=== PATIENT | male | born 1940 | race Caucasian/White ===

== ENCOUNTER 2016-03-27 15:14 | Inpatient (IN) | payer MEDICARE ==
[~2016-03-27] VITALS: Ht 198.1 cm; Wt 116.4 kg
[2016-03-28] MEDS ORDERED: OMEP20TA PO (11:47)
[2016-04-02] VITALS (7 sets, daily range): BP systolic 111–165; BP diastolic 63–82; PULSE 60–93; RESP 15–21; TEMP 97.7–98.5; O2SAT 95–97
[2016-04-02] MEDS ORDERED: THROMBIN (TOPICAL) 5,000 UNIT VIAL ONE (06:35)
[2016-04-02] MEDS ORDERED: GELFOAM SIZE 100 ONE (06:35)
[2016-04-02] MEDS ORDERED: HEPARIN SODIUM - SQ 10,000 UNITS/ML VIAL ONE (06:36)
[2016-04-02] MEDS ORDERED: HEPARIN SODIUM - IV 10,000 UNITS/10 ML VIAL ONE (06:36)
[2016-04-02] MEDS ORDERED: ceFAZolin 2 GM PREMIX 50 ML ONE (06:36)
[2016-04-02] MEDS ORDERED: PROTAMINE SULFATE 50 MG/5 ML VIAL ONE (06:36)
[2016-04-02] MEDS ORDERED: BUPIVACAINE/EPINEPHRINE 0.5% PF 30 ML VIAL ONE (06:42)
[2016-04-02] MEDS ORDERED: BUPIVACAINE/EPINEPHRINE 0.5% 50 ML VIAL ONE (06:44)
[2016-04-02] MEDS ORDERED: INSULIN HUMAN REGULAR 1,000 UNITS/10 ML VIAL SQ PRN (06:45)
[2016-04-02] MEDS ORDERED: METOPROLOL TARTRATE 25 MG TAB PO PRN (06:45)
--- NOTE | 2016-04-02 06:55 | PD.VS.PN ---
Pre-operative Note Pre-operative diagnosis: AAA Planned procedure: EVAR Labs: Hct 44 cr <1.0 Blood: T&S Imaging: CT reviewed CXR : no acute process Orders: ANILA PACHECO Post-operative destination: PACU Operative site marked: No (bilateral groin access) Consent: Informed consent has been obtained from Asad Dang. I have explained the procedure in detail and discussed the risks, benefits, and potential complications. All questions have been answered. Patient contact information: girlfriend, phone number on chart Pietro Deal MD Apr 02, 2016 6:55 am
[2016-04-02] MEDS ORDERED: MIDAZOLAM HCL 2 MG/2 ML VIAL ONE (07:08)
[2016-04-02] MEDS ORDERED: DEXAMETHASONE SOD PHOS 4 MG/ML VIAL ONE (07:08)
[2016-04-02] MEDS ORDERED: LACTATED RINGER'S 1000 ML IV SCH (07:30)
[2016-04-02] MEDS ORDERED: SODIUM CHLORID 0.9% 500 ML IV SCH (07:30)
[2016-04-02] MEDS ORDERED: IOHEXOL 350 MG/ML 100 ML BTL (for RAD DIAG) OTHER ONE (08:21)
[2016-04-02] MEDS ORDERED: fentaNYL CITRATE 250 MCG/5 ML AMP ONE (08:48)
[2016-04-02] MEDS ORDERED: ePHEDrine/NS 50 MG/5 ML SYR IV ONE (09:03)
[2016-04-02] MEDS ORDERED: LACTATED RINGER'S 1000 ML INJ 1,000 ML IV ONE (09:03)
[2016-04-02] MEDS ORDERED: PROPOFOL 200 MG/20 ML AMP IV ONE (09:03)
[2016-04-02] MEDS ORDERED: ONDANSETRON HCL 4 MG/2 ML VIAL IV PUSH ONE (09:03)
[2016-04-02] MEDS ORDERED: NEOSTIGMINE 3 MG/3 ML SYR IV ONE (09:03)
[2016-04-02] MEDS ORDERED: NORMOSOL R INJ 2,000 ML IV ONE (09:04)
[2016-04-02] MEDS ORDERED: SODIUM CHLORID 0.9% 500 ML INJ 500 ML IV ONE (09:04)
[2016-04-02] MEDS ORDERED: IOHEXOL 350 MG/ML 100 ML BTL (for Cath Lab) OTHER ONE (09:19)
--- NOTE | 2016-04-02 10:13 | HHI.PR ---
Immediate Post Op Note Procedure Date: Apr 02, 2016 Pre Op Diagnosis: AAA Post Op Diagnosis: AAA Surgeon: Pietro Deal Senior Asp Net Developer(s): Zeus Pride Procedure: EVAR B SECURITY SYSTEMS INSTALLER Perclose Findings: successful repair + signals B LE after Perclose Complications: none apparent Specimen(s) removed: none Estimated blood loss: 100mL Anesthesia: General Drains: None Fluids: 2000 mL x'oid; 400 mL UOP Patient to: PACU Patient Condition: Good Implant/Devices: SEE IMPLANT LOG (if applicable) Date/Time of Procedure: SEE SURGICAL CARE RECORD Pietro Deal MD Apr 02, 2016 10:13
[2016-04-02] MEDS ORDERED: oxyCODONE/ACETAMINOPHEN 10 MG/325 MG TAB PO PRN (10:15)
[2016-04-02] MEDS ORDERED: GLUCAGON 1 MG/ML VIAL OTHER PRN (10:15)
[2016-04-02] MEDS ORDERED: DEXTROSE 50% IN WATER 50 ML VIAL(D50) IV PUSH PRN (10:15)
[2016-04-02] MEDS ORDERED: Post-op Orders (for Pharmacy) MISC OTHER ONE (10:15)
[2016-04-02] MEDS ORDERED: oxyCODONE/ACETAMINOPHEN 5 MG/325 MG TAB PO PRN (10:15)
[2016-04-02] MEDS ORDERED: ACETAMINOPHEN 325 MG TAB PO PRN (10:15)
[2016-04-02] MEDS: SODIUM CHLOR 0.9% 1000 ML INJ 1,000 ML IV SCH (10:28)
[2016-04-02] MEDS ORDERED: DO NOT ADM ANY ANTICOAGULANT DRUGS XX PRN (10:30)
[2016-04-02] MEDS ORDERED: *ONDANSETRON 4 MG VIAL PERIprocedural Use ONLY ONE (11:02)
[2016-04-02] MEDS: INSULIN NovoLIN REGULAR SUPPLEMENTAL SCALE SQ SCH ×3 (12:00→23:21)
[2016-04-02] MEDS ORDERED: PANTOPRAZOLE SOD 40 MG DELAYED RELEASE TAB PO SCH (21:00)
[2016-04-03 03:00] VITALS: BP 127/66; PULSE 61; PULSE 64; RESP 22; TEMP 97.7; O2SAT 95
[2016-04-03] MEDS: SODIUM CHLOR 0.9% 1000 ML INJ 1,000 ML IV SCH (05:34)
[2016-04-03] MEDS: INSULIN NovoLIN REGULAR SUPPLEMENTAL SCALE SQ SCH (06:00)
[2016-04-03 06:37] LABS: ALT (GPT) 16 U/L (12-78); ANION GAP 6 MEQ/L (5-15); AST (GOT) 13 U/L (15-37); BICARBONATE 26.9 MEQ/L (21.0-32.0); BLOOD UREA NITROGEN 18 MG/DL (7-18); CHLORIDE 107 MEQ/L (98-107); GLOMERULAR FILTRATION RATE 81 ML/MIN (>89); SODIUM (NA) 140 MEQ/L (136-145)
[2016-04-03 06:40] LABS: ALKALINE PHOSPHATASE 70 U/L (45-117); TOTAL BILIRUBIN ADULT 0.4 MG/DL (0.2-1.0)
[2016-04-03 07:00] VITALS: PULSE 60
[2016-04-03 07:52] VITALS: BP 142/77; PULSE 59; RESP 18; TEMP 97.4; O2SAT 97
--- NOTE | 2016-04-03 08:00 | PD.VS.PN ---
Subjective POD #: 1 Procedure(s): EVAR Subjective/Hospital Course doing well, ambulating, voiding on his own Groins ok and no pain Objective Vitals/I&O Date Time Temp Pulse Resp B/P Pulse Ox O2 Delivery O2 Flow Rate FiO2 04/03/16 07:52 97.4 59 18 142/77 97 04/03/16 03:00 97.7 64 22 127/66 95 04/03/16 03:00 61 04/02/16 23:00 60 04/02/16 23:00 98.4 66 21 120/65 04/02/16 20:35 21 04/02/16 19:21 98.5 93 18 111/65 04/02/16 19:00 85 04/02/16 15:36 69 04/02/16 15:36 98.1 66 15 114/63 95 04/02/16 15:28 97 Nasal Cannula 3.00 04/02/16 12:30 98.0 65 20 137/75 96 Arterial Line 04/02/16 12:30 66 04/02/16 12:00 97.2 58 14 145/77 97 Nasal Cannula 2 04/02/16 11:05 Nasal Cannula 2 04/02/16 11:00 64 16 147/78 98 Nasal Cannula 3 04/02/16 10:45 57 16 136/71 97 Nasal Cannula 3 04/02/16 10:30 60 16 136/71 97 Nasal Cannula 3 155/63 04/02/16 10:15 70 16 147/73 98 Nasal Cannula 3 151/65 04/02/16 10:08 97.4 70 16 142/78 97 Nasal Cannula 3 04/03/16 04/03/16 04/03/16 07:00 15:00 23:00 Intake Total 1500 ml Output Total 1025 ml Balance 475 ml Exam: groins soft, minimal ecchymoses L>R Feet warm Laboratory Laboratory Tests Test 04/02/16 04/03/16 13:05 05:17 Blood Type O POSITIVE Sodium Level 140 Potassium Level 4.0 Chloride Level 107 Carbon Dioxide Level 26.9 Anion Gap 6 Blood Urea Nitrogen 18 Creatinine 0.91 Estimat Glomerular Filtration 81 Rate Random Glucose 122 Calcium Level 8.3 Total Bilirubin 0.4 Aspartate Amino Transf 13 (AST/SGOT) Alanine Aminotransferase 16 (ALT/SGPT) Alkaline Phosphatase 70 Total Protein 5.7 Albumin 3.2 Assessment and Plan Plan Ready for d/c today RTC 1m with post-op EVAR CTA Pietro Deal MD Apr 03, 2016 08:00
[2016-04-03] MEDS ORDERED: ASPIRIN EC 325 MG TABEC PO SCH (09:00)
[2016-04-03] MEDS ORDERED: Aspirin Ec PO (09:23)
--- NOTE | 2016-04-05 12:05 | MP ---
cc: KAREN DEAL MD DATE OF SURGERY 04/02/2016 PREOPERATIVE DIAGNOSIS Abdominal aortic aneurysm. POSTOPERATIVE DIAGNOSIS Abdominal aortic aneurysm. PROCEDURE 1. Endovascular exclusion of abdominal aortic aneurysm with a bifurcated device with two docking lens. 2. Bilateral common femoral artery Perclose. ATTENDING SURGEON Karen Deal MD ANESTHESIA General. INDICATION Mr. Dang is a 75-year-old gentleman with a 5.5 cm infrarenal intact abdominal aortic aneurysm. Anatomically he is a candidate for endovascular repair and he was taken to the operating room for this procedure. DESCRIPTION OF THE PROCEDURE Informed consent was obtained from the patient. He was taken to the operating room and placed supine on the operating table. An appropriate timeout was taken to ensure the patient's identity, operative site and planned procedure. 2 grams of Ancef initiated prior to skin incision and will be discontinued after a single prep dose. Everyone in the room agreed with time out and proceeded. He was prepped from his nipple to his knees. A 21 gauge micropuncture needles were used to access the bilateral common femoral arteries. This was exchanged using Seldinger technique for micropuncture sheaths through which angiography was performed to confirm intraarterial access in the common femoral location. Two 5 Citizen [place] sheaths after the micropuncture sheath were placed 0.035 Storq wire was inserted and micropuncture was changed for a 5 [place] sheath. Two Perclose Proglide sutures were inserted and tagged. These were not tied but will be used later. The Storq wire was advanced to the aorta and a short 8 [place] sheath was placed on the left and a long 8 [place] sheath was placed on the right. The patient was systemically heparinized throughout the remainder of the case. ACT was kept greater 250. Over the right hand a straight marker flush catheter was placed and over the left hand a Storq wire a catheter was used to exchange for a Lunderquist wire. The 8 Citizen [place] sheath on the left was removed. Jessie dilators were used to dilate the skin and subcutaneous tissue as well as the arteriotomy and the main device which was a 26 x 111 was inserted oriented appropriately. Interval angiography was performed to locate the renal arteries and the main device was deployed down to the contralateral gate. The renal arteries were then confirmed and the top cap was deployed. With the main body parked in position, a roadrunner wire was placed through the flush catheter on the patient's right and this was exchanged for a Cobra catheter and using the Cobra and roadrunner we were able to navigate into the contralateral gate and this was confirmed with angiography. A Lunderquist wire was then placed. The Cobra catheter was removed and a marker flush straight catheter was then inserted. An angiogram confirmed the location of the right hypogastric artery in the contralateral limb which was a Zenith 20 x 56 was inserted and deployed so the distal aspect of the limb was immediately proximal to the hypogastric artery. After deploying the contralateral limb, the introducer of the sheath was removed. The remainder of the main body was deployed and the top cath was recaptured. The marker catheter was placed up the left hand side and an angiogram confirmed the location of the left hypogastric artery and the ipsilateral limb which was a 1656 was deployed down to the contralateral gate. A coated balloon was used to balloon the proximal and distal ends as well as the junctions and the completion angiogram was obtained that showed the type II endoleak but no I or III endoleak. Wire, catheter and sheath removed. Perclose was tied down. Hemostasis was achieved in the groin through a Doppler signal in the feet and heparin reversed with protamine. There were no complications. I was present and scrubbed for the entire procedure. MD ISABEL Seals/KK /10:45 AM /11:37 AM TRAY
== END 2016-04-03 10:20 | disposition home or self-care (01) | DRG 269 ==
LOC: HSDI 04-02 05:54 → EDUNIT# 04-02 07:30 → HCVR 04-02 14:20
PROVIDERS: ADMIT Surgery; ATTEND Surgery
PROC: 04V03EZ Restriction of Abdominal Aorta with Branched or Fenestrated Intraluminal Device, One or Two Arteries, Percutaneous Approach (ICD-10-PCS; principal; 2016-04-02 07:30)
DX: I71.4 Abdominal aortic aneurysm, without rupture (principal); I27.2 Other secondary pulmonary hypertension; E78.5 Hyperlipidemia, unspecified; K21.9 Gastro-esophageal reflux disease without esophagitis; I08.3 Combined rheumatic disorders of mitral, aortic and tricuspid valves; Z88.2 Allergy status to sulfonamides
CPT/HCPCS: 75630; 80053; 82948; 86850; 86900; 86901; 94150; C1725; C1769; C1874; J0690; J1100; J1644; J2250; J2405; J2710; J2720; J3010; J7030; J7040; J7120; Q9967

== ENCOUNTER → 2016-03-28 | Outpatient (CLI) | payer MEDICARE ==
[~2016-03-28] MED LIST: Aspirin Ec PO; OMEP20TA PO
--- NOTE | 2016-03-28 12:57 | RADRPT ---
EXAM DATE/TIME: 03/28/2016 12:32 [facility] COMPARISON: No previous studies available for comparison. INDICATIONS : Evaluate for pneumonia,pneumothorax and communicable diseases. Pre-op AAA surgery MEDICAL HISTORY : None. SURGICAL HISTORY : None. ENCOUNTER: Initial ACUITY: 1 day PAIN SCORE: 0/10 LOCATION: chest FINDINGS: PA and lateral views of the chest demonstrate the lungs to be symmetrically aerated without evidence of mass, infiltrate or effusion. The heart size is normal. There is moderate tortuosity of the thora cic aorta. Osseous structures are intact. CONCLUSION: No acute disease. Eliana Torres MD on March 28, 2016 at 12:55 Board Certified Radiologist. This report was verified electronically.
[2016-03-28 13:16] LABS: AUTOMATED NEUTROPHIL # 3.1 TH/MM3 (1.8-7.7); BASOPHIL % 0.3 % (0.0-2.0); EOSINOPHIL # 0.1 TH/MM3 (0-0.4); EOSINOPHIL % 1.8 % (0.0-4.0); HEMATOCRIT 44.3 % (39.0-51.0); HEMO FLAGS DIFF FINAL; LYMPH % 20.6 % (9.0-44.0); MEAN CELL VOLUME 90.5 FL (80.0-100.0); MEAN CORPUSCULAR HEMOGLOBIN 30.5 PG (27.0-34.0); MEAN CORPUSCULAR HGB CONC 33.7 % (32.0-36.0); MONO % 12.8 % (0.0-8.0); NEUT % 64.5 % (16.0-70.0); PLATELET COUNT 137 TH/MM3 (150-450); RED CELL DISTRIBUTION WIDTH 13.8 % (11.6-17.2); WHITE BLOOD COUNT 4.7 TH/MM3 (4.0-11.0)
[2016-03-28 13:21] LABS: BLOOD, URINE NEG (NEG); COMMENT (UR) CULT NOT INDICATED; CULTURE IF INDICATED CULT NOT INDICATED; GLUCOSE,URINE NEG (NEG); KETONE, URINE NEG (NEG); MUCUS URINE FEW /lpf (OCC); NITRITE,URINE NEG (NEG); PH, URINE 5.5 (5.0-8.5); SQUAMOUS EPITHELIAL CELL URINE <1 /hpf (0-5); URINE COLOR YELLOW (YELLW/STRAW)
[2016-03-28 13:27] LABS: PROTHROMBIN TIME - PATIENT 10.5 SEC (9.8-11.6)
[2016-03-28 13:44] LABS: BICARBONATE 29.9 MEQ/L (21.0-32.0); POTASSIUM 4.4 MEQ/L (3.5-5.1)
--- NOTE | 2016-03-29 10:24 | EKG ---
Date Performed: 03/28/2016 Time Performed: 11:23:48 PTAGE: 75 years EKG: SINUS BRADYCARDIA WITH FIRST DEGREE AV BLOCK MARKED LEFT AXIS DEVIATION LEFT BUNDLE BRANCH BLOCK ABNORMAL ECG NO PREVIOUS TRACING DOCTOR: Nain Prasad Interpretating Date/Time 03/29/2016 10:23:23
== END ==
LOC: CPRE 10:50
PROVIDERS: ATTEND Surgery
DX: Z01.812 Encounter for preprocedural laboratory examination (principal); Z01.811 Encounter for preprocedural respiratory examination; Z01.810 Encounter for preprocedural cardiovascular examination; I71.4 Abdominal aortic aneurysm, without rupture; I44.0 Atrioventricular block, first degree; I44.7 Left bundle-branch block, unspecified; R00.1 Bradycardia, unspecified; R94.31 Abnormal electrocardiogram [ECG] [EKG]
CPT/HCPCS: 36415; 71020; 80048; 81001; 85025; 85610; 93005

== ENCOUNTER 2017-05-20 11:28 | Inpatient (IN) | payer MEDICARE ==
[~2017-05-20] VITALS: Ht 198.1 cm; Wt 110.4 kg
[~2017-05-20 11:28] MED LIST changes: -Aspirin Ec PO; -OMEP20TA PO; +OMEP20TA93 PO
[2017-05-20] MEDS ORDERED: ceFAZolin INJ 1,000 MG VIAL IV ONE (12:00)
[2017-05-20] MEDS ORDERED: GLYCOPYRROLATE 1 MG/5 ML SYRINGE IV PUSH ONE (12:00)
[2017-05-20] MEDS ORDERED: ESMOLOL HCL 100 MG/10 ML VIAL IV ONE (12:00)
[2017-05-20] MEDS ORDERED: ePHEDrine/NS 25 MG/5 ML SYRINGE IV ONE (12:00)
[2017-05-20] MEDS ORDERED: ONDANSETRON HCL 4 MG/2 ML VIAL IV ONE (12:00)
[2017-05-20] MEDS ORDERED: LIDOCAINE HCL 1% PF 5 ML SYRINGE OTHER ONE (12:00)
[2017-05-20] MEDS ORDERED: ROCURONIUM INJ 50 MG/5 ML SYRINGE IV PUSH ONE (12:00)
[2017-05-20] MEDS ORDERED: PROPOFOL 200 MG/20 ML AMP IV ONE (12:00)
[2017-05-20] MEDS ORDERED: NEOSTIGMINE 5 MG/5 ML SYRINGE IV PUSH ONE (12:00)
[2017-05-20] MEDS ORDERED: METOPROLOL TARTRATE 25 MG TAB PO PRN (12:15)
[2017-05-20] MEDS ORDERED: LACTATED RINGER'S 1000 ML IV PRN (12:15)
[2017-05-20] MEDS ORDERED: POVIDONE IODINE 5% (ANTISEPSIS KIT) 4 APPLICATIONS EACH NARE PRN (12:15)
[2017-05-20] MEDS ORDERED: CHLORHEXIDINE GLUCONATE 2 % 1 PACK (2 CLOTHS) TOPICAL PRN (12:15)
[2017-05-20] MEDS ORDERED: SODIUM CHLORID 0.9% 500 ML IV PRN (12:15)
--- NOTE | 2017-05-20 12:36 | RADRPT ---
EXAM DATE/TIME: 05/20/2017 12:16 [facility] COMPARISON: No previous studies available for comparison. INDICATIONS : Evaluate for pneumonia, pneumothorax or communicable disease. Preop chest for revision of abdominal aortic aneurysm repair MEDICAL HISTORY : Aneurysm, abdominal. SURGICAL HISTORY : Abdominal aortic aneurysm repair. ENCOUNTER: Initial ACUITY: 1 day PAIN SCORE: 0/10 LOCATION: Bilateral chest FINDINGS: A single view of the chest demonstrates the lungs to be symmetrically aerated without evidence of mas s, infiltrate or effusion. The cardiomediastinal contours are unremarkable. Osseous structures are intact. CONCLUSION: No acute disease. Devon Haley Jr., MD on May 20, 2017 at 12:34 Board Certified Radiologist. This report was verified electronically.
[2017-05-20] MEDS ORDERED: PROTAMINE SULFATE 50 MG/5 ML VIAL ONE (12:45)
[2017-05-20] MEDS ORDERED: HEPARIN-NS/PF INJ 500 ML ONE (12:46)
[2017-05-20] MEDS ORDERED: BUPIVACAINE HCL PF 0.5% 30 ML VIAL ONE (12:46)
[2017-05-20] MEDS ORDERED: HEPARIN SODIUM - IV 10,000 UNITS/10 ML VIAL ONE (12:46)
--- NOTE | 2017-05-20 12:53 | HHI.HP ---
History of Present Illness Chief Complaint: Possible endoleak History of Present Illness 76 yo male s/p EVAR a year ago with ? type III endoleak on surveillance CT. Had abdominal pain in the fall that has largely subsided. Getting GI work-up including colonoscopy Past/Family/Social History Past Medical History AAA HTN XOL Past Surgical History EVAR Social History nonsmoker Family History NC Home Medications Reported Medications Omeprazole (Omeprazole) 20 Mg Tab, 20 MG PO DAILY, #30 TAB 0 Refills 03/28/16 Discontinued Scripts [Aspirin] 325 MG TABEC No Conflict Check, 325 MG PO DAILY for anticoagulation, # 30 TAB.EC 3 Refills Prov:Meagan Harris TEST TECHNICIAN 04/03/16 Coded Allergies: Sulfa (Sulfonamide Antibiotics) (Unverified Allergy, Severe, RASH, 05/20/17) Review of Systems Constitutional: DENIES: Fever, Chills Physical Exam Vitals/I&O Date Time Temp Pulse Resp B/P (MAP) Pulse Ox O2 Delivery O2 Flow Rate FiO2 05/20/17 12:06 97.5 73 18 136/72 (93) 98 Neuro: alert, oriented, no distress HEENT: NC/AT Neck: no JVD Heart: reg rate, no M Lungs: clear B Abdomen: soft Caprini VTE Risk Assessment Caprini VTE Risk Assessment: No/Low Risk (score <= 1) Caprini Risk Assessment Model Point Value = 1 Point Value = 2 Point Value = 3 Point Value = 5 Age 41-60 Minor surgery BMI > 25 kg/m2 Swollen legs Varicose veins or History of unexplained or recurrent spontaneous Oral contraceptives or hormone replacement Sepsis (< 1 month) Serious lung disease, including pneumonia (< 1 month) Abnormal pulmonary function Acute myocardial infarction Congestive heart failure (< 1 month) History of inflammatory bowel disease Medical patient at bed rest Age 61-74 Arthroscopic surgery Major open surgery (> 45 min) Laparoscopic surgery (> 45 min) Malignancy Confined to bed (> 72 hours) Immobilizing plaster cast Central venous access Age >= 75 History of VTE Family history of VTE Factor V Leiden Prothrombin [id number] Lupus anticoagulant Anticardiolipin antibodies Elevated serum homocysteine Heparin-induced thrombocytopenia Other congenital or acquired thrombophilia Stroke (< 1 month) Elective arthroplasty Hip, pelvis, or leg fracture Acute spinal cord injury (< 1 month) Prophylaxis Regimen Total Risk Factor Score Risk Level Prophylaxis Regimen 0-1 Low Early ambulation 2 Moderate Order ONE of the following: *Sequential Compression Device (SCD) *Heparin 5000 units SQ BID 3-4 Higher Order ONE of the following medications: *Heparin 5000 units SQ TID *Enoxaparin/Lovenox 40 mg SQ daily (WT < 150 kg, CrCl > 30 mL/min) *Enoxaparin/Lovenox 30 mg SQ daily (WT < 150 kg, CrCl > 10-29 mL/min) *Enoxaparin/Lovenox 30 mg SQ BID (WT < 150 kg, CrCl > 30 mL/min) AND/OR *Sequential Compression Device (SCD) 5 or more Highest Order ONE of the following medications: *Heparin 5000 units SQ TID (Preferred with Epidurals) *Enoxaparin/Lovenox 40 mg SQ daily (WT < 150 kg, CrCl > 30 mL/min) *Enoxaparin/Lovenox 30 mg SQ daily (WT < 150 kg, CrCl > 10-29 mL/min) *Enoxaparin/Lovenox 30 mg SQ BID (WT < 150 kg, CrCl > 30 mL/min) AND *Sequential Compression Device (SCD) Assessment and Plan Plan Angio and possible EVAR revision Discharge Planning [facility] [phone] Pietro Deal MD May 20, 2017 12:53
[2017-05-20 13:02] LABS: AUTOMATED NEUTROPHIL # 4.2 TH/MM3 (1.8-7.7); BASOPHIL % 0.3 % (0.0-2.0); EOSINOPHIL # 0.1 TH/MM3 (0-0.4); EOSINOPHIL % 1.1 % (0.0-4.0); HEMATOCRIT 39.9 % (39.0-51.0); HEMOGLOBIN 13.7 GM/DL (13.0-17.0); LYMPH % 13.1 % (9.0-44.0); LYMPHOCYTE # 0.7 TH/MM3 (1.0-4.8); MEAN CELL VOLUME 87.5 FL (80.0-100.0); MEAN CORPUSCULAR HGB CONC 34.3 % (32.0-36.0); MEAN PLATELET VOLUME 8.2 FL (7.0-11.0); MONO % 11.5 % (0.0-8.0); MONOCYTE # 0.7 TH/MM3 (0-0.9); PLATELET COUNT 184 TH/MM3 (150-450); RED BLOOD COUNT 4.56 MIL/MM3 (4.50-5.90); RED CELL DISTRIBUTION WIDTH 14.8 % (11.6-17.2); WHITE BLOOD COUNT 5.7 TH/MM3 (4.0-11.0)
[2017-05-20 13:09] LABS: PROTHROMBIN TIME - PATIENT 10.4 SEC (9.8-11.6)
--- NOTE | 2017-05-20 14:11 | HHI.PR ---
cc: Pietro Deal MD Immediate Post Op Note Procedure Date: May 20, 2017 Pre Op Diagnosis: Endoleak after EVAR Post Op Diagnosis: Type II endoleak after EVAR Surgeon: Pietro Deal Manager Lpn(s): none Procedure: Aortogram Findings: type II endoleak, no type I or III endoleak Complications: none Specimen(s) removed: none Estimated blood loss: 10mL Anesthesia: General Patient to: PACU Patient Condition: Good Implant/Devices: SEE IMPLANT LOG (if applicable) Date/Time of Procedure: SEE SURGICAL CARE RECORD Pietro Deal MD May 20, 2017 14:11
[2017-05-20] MEDS ORDERED: SUGAMMADEX SODIUM 200 MG/2 ML VIAL IV PUSH ONE (14:13)
[2017-05-20] MEDS ORDERED: ceFAZolin 2 GM PREMIX 50 ML IV ONE (14:36)
[2017-05-20] MEDS ORDERED: IOHEXOL 350 MG/ML 100 ML BTL (for RAD DIAG) IVCONTRAST ONE (14:51)
[2017-05-20] MEDS ORDERED: DO NOT ADM ANY ANTICOAGULANT DRUGS PRN (15:15)
[2017-05-20 16:45] VITALS: BP 141/74; PULSE 78; RESP 18; TEMP 97.8; O2SAT 96
--- NOTE | 2017-05-21 16:03 | MP ---
cc: Pietro Deal MD DATE OF OPERATION: 05/20/2017 PREOPERATIVE DIAGNOSIS: Endoleak after endovascular aortic exclusion. POSTOPERATIVE DIAGNOSIS: Type II endoleak after endovascular exclusion of abdominal aortic aneurysm. PROCEDURE PERFORMED: 1. Aortogram. 2. Right common femoral artery angioseal. ATTENDING SURGEON: Pietro Deal MD ANESTHESIA: General. INDICATIONS FOR PROCEDURE: Mr. Dang is a 76-year-old gentleman with an abdominal aortic aneurysm that was repaired by an EVAR approximately a year ago. He has suggestion of a sac growth and essential type [address] scan. He was taken to the operating room for angiographic evaluation and potential treatment. There was no prior catheter based imaging available for my review since the new CT findings. Intraoperatively it was found he had a type 2, no type 1 and no type 3 endoleak. DESCRIPTION OF PROCEDURE: Informed consent was obtained from the patient. He was taken to the operating room and placed supine on the operating table. An appropriate time out was taken to ensure the patient's identity, operative site and planned procedure, the administration of antibiotics were not necessary as this is a clean procedure without the planned implantation of any foreign object. Everyone in the room agreed with the time out and we proceeded. His bilateral groins were prepped and draped and the right common femoral artery was accessed with a 21 gauge micropuncture needle and this was exchanged using Seldinger technique for a micropuncture sheath through which a sheath with a 0.035 Storq wire was introduced. A micropuncture sheath was exchanged for a 6-[place] sheath and a marker flush catheter was placed over the wire and into the sheath. Iliac limb angiograms as well as aortograms were obtained. This showed the patient had patent iliac limbs, with no type 1 and no type 3 endoleak. There was a delayed type 2 endoleak. The wire catheter and sheath were removed and the groins closed with EndoShield. There were no complications. I was present and scrubbed and formulated the entire procedure. MD ISABEL Seals/ELMER , 06:16 PM , 11:27 PM [facility]ITAL[facility]
--- NOTE | 2017-05-21 18:52 | EKG ---
Date Performed: 05/20/2017 Time Performed: 12:07:57 PTAGE: 76 years EKG: Sinus rhythm WITH FIRST DEGREE AV BLOCK MARKED LEFT AXIS DEVIATION LEFT BUNDLE BRANCH BLOCK ABNORMAL ECG Since th e prior tracing, there has been no significant change PREVIOUS TRACING : 03/28/2016 11.23 DOCTOR: Chema Chang Interpretating Date/Time 05/21/2017 18:50:02
== END 2017-05-20 17:28 | disposition home or self-care (01) | DRG 316 ==
LOC: HSDI 11:28
PROVIDERS: ADMIT Surgery; ATTEND Surgery
PROC: B40DYZZ Plain Radiography of Aorta and Bilateral Lower Extremity Arteries using Other Contrast (ICD-10-PCS; principal; 2017-05-20 13:21)
DX: T82.330A Leakage of aortic (bifurcation) graft (replacement), initial encounter (principal); I10 Essential (primary) hypertension; Y83.2 Surgical operation with anastomosis, bypass or graft as the cause of abnormal reaction of the patient, or of later complication, without mention of misadventure at the time of the procedure; Z85.828 Personal history of other malignant neoplasm of skin; Z88.2 Allergy status to sulfonamides
CPT/HCPCS: 71045; 75625; 85025; 85610; 85730; 86850; 86900; 86901; 93005; C1769; J0690; J1644; J2405; J2710; J2720; J3010